=== PATIENT | female | born 2000 | race Caucasian/White ===

== ENCOUNTER 2024-08-16 05:30 | Inpatient (IN) | payer SELFPAY ==
[2024-08-16] VITALS (26 sets, daily range): BP systolic 101–120; BP diastolic 57–80; PULSE 81–105; RESP 16–18; TEMP 36.4–37.4; O2SAT 80–100; BMI 26.9
[2024-08-16] MEDS: Oxytocin 10 UNITS/ML Vial IM (06:15)
[2024-08-16] MEDS: Oxytocin 15 Units/NS 250ml 15 UNITS/250 ML IV.SOLN 83 UNITS IV (06:19)
--- NOTE | 2024-08-16 06:25 | PCM.HP.OB ---
HPI - General General Date of Admission: 08/16/24 Date of Service: 08/16/24 Chief Complaint: Labor HPI Narrative SUYAPA GARCIA, is a 23 F who presents with SROM and active labor. Complete and +2. GBS positive Maternal Data Information Final RICKIE: 08/20/24 Gestational age: 39+3 PFSH PFSH Medical History no medical history Home Medications ?Medication ?Instructions ?Recorded ?Last Taken ?Type PNV#14-iron fum-FA#1-[id number] cap PO 08/16/24 Unknown History 27 mg iron-1 mg-300 mg-50 mg capsule Allergy/AdvReac Type Severity Reaction Status Date / Time No Known Allergies Allergy Verified 08/16/24 06:26 History 2 Elective abortions Hx Para 0 Spontaneous abortions 1 Hx # Term Pregnancies Ectopic pregnancies Hx # Pregnancies Multiple births # of living children NST FHR Rate Baby A Baseline: 140s Minimal time on monitor ROS Constitutional Constitutional: Denies fatigue, fever(s) or malaise Eyes Eyes: Denies change in vision ENT HEENT: Denies dizziness or headache(s) Cardiovascular Cardiovascular: Denies chest pain, dyspnea or lightheadedness Respiratory/Chest Respiratory/Chest: Denies cough or dyspnea Gastrointestinal Gastrointestinal: Denies change in bowel habits Genitourinary Genitourinary: Denies burning urination or genital lesions Integumentary Integumentary: Denies rash Neurologic Neurologic: Denies confusion, dizziness, headache(s), numbness or weakness Vital Signs Vital Signs Vital Signs: 08/16/24 06:18 08/16/24 06:18 08/16/24 06:23 Pulse Rate 83 81 Blood Pressure 120/74 BP Systolic 120 BP Diastolic 74 Pulse Ox 08/16/24 06:23 Pulse Rate Blood Pressure BP Systolic BP Diastolic Pulse Ox 100 Physical Exam Const alert and no apparent distress General Appearance: cooperative HEENT normocephalic Resp normal respiratory effort Cardio regular rate GI soft to palpation GI Narrative: gravid, nontender, appropriate for gestational age Extremity no calf tenderness General Extremity: edema Skin no wounds Rashes: No rashes noted Psych activity/motor behavior normal Labs Labs Labs: Antibody Screen Pending Hct 33.0 % (37-47) L Hgb 11.0 g/dL (12.0-15.0) L Syphilis Total Ab Pending Assessment & Plan (1) 39 weeks gestation of : (2) Normal labor: (3) Positive GBS test: PLAN: untreated due to advanced labor PLAN: Plan Admit
[2024-08-16 06:32] LABS: Absolute Lymphocyte Count 1.53 X10^3/uL (0.83-4.51); Absolute Neutrophil Count 12.4 X10^3/uL (2.0-7.7); Basophil# 0.04 X10^3/uL; Basophil% 0.3 % (0-1); Eosinophil# 0.04 X10^3/uL; Eosinophils% 0.3 % (0-5); Lymphocyte # 1.53 X10^3/ul (0.83-4.51); Mean Corp Hgb Conc 33.3 g/dL (32-36); Mean Platelet Vol. 9.7 fl (6.2-12.0); Monocyte# 0.65 X10^3/uL; Monocyte% 4.3 % (0-10); NRBC Flagged by Analyzer 0 % (0-5); Neutrophil # 12.44 X10^3/uL (2.7-7.7); Neutrophil % 81.6 % (47-70); Platelet Count 160 K/mm3 (150-450); RBC Distribution Width CV 13.2 % (11.6-14.6); RBC Distribution Width SD 40.4 fl (35.1-43.9); Red Blood Count 3.93 M/mm3 (4.2-5.4); White Blood Count 15.2 K/mm3 (4.4-11.0)
--- NOTE | 2024-08-16 06:46 | EX.PCM.OBRPT ---
Assessment & Plan (1) (spontaneous vaginal delivery): (2) Positive GBS test: Maternal Data Information Final RICKIE: 08/20/24 Gestational age: 39+4 Vaginal Delivery Maternal Presentation Maternal Presentation: Active Labor and Spontaneous Rupture of Membranes Maternal Presentation: Arrived complete and +2 Operative Information Date of Procedure: 08/16/24 Pre-Operative Diagnosis: active labor Post-Operative Diagnosis: Surgery / Procedure Performed: Spontaneous Vaginal Delivery Type of Anesthesia: None Estimated Blood Loss: 50 cc Time of Delivery: 06:02 Findings Description of Procedure: Arrive d complete an +2 with SROM at home. Pushed over an intact perineum and delivered OA. The anterior and posterior shoulders delivered easily. The cried on delivery and was placed on the maternal abdomen. The cord was clamped and cut. No cord blood was needed. The placenta delivered with gentle traction. There were no lacerations. Presentation: Vertex and DANIKA Amniotic Membrane Rupture Type: Spontaneous Amniotic Fluid Description: Clear Placental Delivery Description: Spontaneous Placenta Disposition: [facility] Cord Vessel Description: 3 Vessels Cord Entanglement: True Knot(s) Nuchal Cord Compression: Without compression Infant A Gender: Female (1 minute): 9 (5 minute): 9 Delayed Cord Clamping: Yes Post Vaginal Delivery Medications Given After Delivery: IV Pitocin and IM Pitocin Episiotomy Description: None Laceration: None Complication Complications: None
[2024-08-16 07:49] LABS: Syphilis Antibodies Non-reactive
[2024-08-17] VITALS (8 sets, daily range): BP systolic 106–125; BP diastolic 68–82; PULSE 90–101; RESP 16; TEMP 36.4–36.8; O2SAT 96–97
--- NOTE | 2024-08-17 06:58 | PCM.PN.OB ---
Subjective Subjective Doing well. Ambulating and voiding without difficulty. Mild lochia. Breast feeding. Objective Data Objective Data Vital Signs: Vital Signs Temp Pulse Resp BP Pulse Ox O2 Del Method 97.5 F L 94 16 116/68 97 Room Air 08/17/24 04:15 08/17/24 04:15 08/17/24 04:15 08/17/24 04:15 08/17/24 04:15 08/17/24 04:15 Oxygen Delivery Method Room Air Weight: 66.769 kg Body Mass Index (BMI) 26.9 Intake & Output: Intake and Output for Last 24 Hours 08/15/24 08/16/24 08/17/24 23:59 23:59 23:59 Intake Total 250 / 250 Output Total 1450 / 1450 Balance -1200 / -1200 Lab / Micro Data 08/16/24 05:43 Labs: Laboratory Results - last 24 hr 08/16/24 05:43: Syphilis Total Ab Non-reactive, Blood Type A POSITIVE, Antibody Screen NEGATIVE ROS Constitutional Constitutional: Denies fatigue, fever(s) or malaise Eyes Eyes: Denies change in vision ENT HEENT: Denies dizziness or headache(s) Cardiovascular Cardiovascular: Denies chest pain, dyspnea or lightheadedness Respiratory/Chest Respiratory/Chest: Denies cough or dyspnea Gastrointestinal Gastrointestinal: Denies change in bowel habits Genitourinary Genitourinary: Denies burning urination or genital lesions Integumentary Integumentary: Denies rash Neurologic Neurologic: Denies confusion, dizziness, headache(s), numbness or weakness Physical Exam Const alert and no apparent distress Narrative: Fundus firm, below umbilicus. Assessment & Plan (1) (spontaneous vaginal delivery): (2) Positive GBS test: PLAN: Plan Discharge at 36 hours
--- NOTE | 2024-08-17 06:59 | PCM.DC.SUM ---
Providers Date of Admission: 08/16/24 Date of Discharge: 08/17/24 Primary Care Physician: No Primary Care Phys Reason For Visit: VAGINAL DELIVERY Diagnosis Discharge Diagnosis (1) (spontaneous vaginal delivery): Status: Acute Code(s): O80 - Encounter for full-term uncomplicated delivery (2) Positive GBS test: Status: Acute Code(s): B95.1 - Streptococcus, group B, as the cause of diseases classified elsewhere Plan Discharge at 36 hours Medications at Discharge Home Medications PNV#14-iron [id number]#8-[id number] 27 mg iron-1 mg-300 mg-50 mg capsule cap PO 08/16/24 Hospital Course Operations None Procedures None Summary of Care Provided Minutes Spent on Discharge: 20 Hospital Course: shortly after arrival. Labored at home. GBS positive untreated. Breast feeding on discharge Physical Exam Const alert and no apparent distress Narrative: Fundus firm, below umbilicus. Weight / BMI Weight Weight: 66.769 kg Body Mass Index (BMI) 26.9 ABG / Lab / Microbiology Data 08/16/24 05:43 Laboratory: Laboratory Results - last 24 hr 08/16/24 05:43: Syphilis Total Ab Non-reactive, Blood Type A POSITIVE, Antibody Screen NEGATIVE D/C Instructions Discharge Diet: No restrictions May resume sexual activity in: 6 weeks Call your doctor if your incision/area has: Continuous Slow Oozing, Sudden Increased Bleeding, Foul Smelling Discharge and Swelling at the incision site Call your doctor if you observe: Fever of 101 or Higher and Inability to urinate Please Follow Up With: Reny Montgomery MD When: Follow up with our office in 1-2 and 6 weeks or as needed. [phone] Meaningful Use Info Meaningful Use Meaningful Use Diagnoses (Choose all that apply): None applicable Ischemic Stroke Statin Dosing Therapy Reference: STATIN DOSE THERAPY REFERENCE: * Patients > 75 years receive moderate or high dose statin therapy. * Patients 75 years or YOUNGER should receive HIGH intensity statin dose unless contraindicated. You will be required to document reason for non-treatment if statin daily dose does not meet guidelines. HIGH DOSE STATIN THERAPY DAILY Atorvastatin > than or = to 40 mg Rosuvastatin > than or = to 20 mg Amlodipine + Atorvastatin > than or = to 2.5/40 mg Ezetimibe + Simvastatin 10/80 mg Simvastatin 80mg Discharge Plan Admission Admit Date/Time: 08/16/24 05:30 Primary Reason for Your Visit: labor Attending Provider: Angela Lam Primary Care Provider: Care Physician,No Primary Discharge Orders/Prescriptions Prescriptions: Continued PNV #14-iron-FA#6-[id number] 27 mg iron-1 mg -300 mg-50 mg capsule PO Referrals / Follow Up: Care Physician,No Primary [Primary Care Provider] - Disposition Disposition (needs filled in before D/C Order can be placed): Home, Self Care
== END 2024-08-17 18:30 | disposition home or self-care (01) | DRG 807 ==
LOC: WPOUT 05:31 → WP 05:32 → WPOUT 05:52 → WP 05:52
PROVIDERS: Admitting Provider Obstetrics & Gynecology; Visit Provider Obstetrics & Gynecology
DX: O42.92 Full-term premature rupture of membranes, unspecified as to length of time between rupture and onset of labor (principal); Z37.0 Single live birth; O69.2XX0 Labor and delivery complicated by other cord entanglement, with compression, not applicable or unspecified; O99.824 Streptococcus B carrier state complicating childbirth; O69.81X0 Labor and delivery complicated by cord around neck, without compression, not applicable or unspecified; Z3A.39 39 weeks gestation of pregnancy
CPT/HCPCS: 59025; 59050; 85025; 86780; 86850; 86900; 86901; 99221; G0378